=== PATIENT | female | born 1965 | race Caucasian/White ===

== ENCOUNTER 2017-01-19 11:59 | Emergency (ER) | payer OTHER ==
[~2017-01-19] VITALS: Ht 157.5 cm; Wt 91.5 kg
[2017-01-19 12:02] VITALS: Ht 157.5 cm; Wt 91.5 kg
--- NOTE | 2017-01-19 12:55 | ERD ---
ER Documentation Chief Complaint Date/Time DATE: 01/19/17 TIME: 12:52 Chief Complaint on menses, large bleeding today HPI This is a 51-year-old female who presents to the emergency department today complaining of a large amount of vaginal bleeding that started this morning. Patient states she is currently on her menstrual cycle and is 3 days into her cycle. States that this is abnormal for her. States that she gets her menstrual cycle every month and has not missed any recently. States she had some mild abdominal pain. Denies any history of fibroids. Denies any dizziness , weakness. Denies any dysuria. ROS All systems reviewed and are negative except as per history of present illness. Medications Home Meds Active Scripts Docusate Sodium* (Colace*) 100 Mg Capsule, 100 MG PO TID, #30 CAP Prov:JENS KINGSLEY PA-C 01/19/17 Ferrous Sulfate* (Ferrous Sulfate*) 325 Mg Tabec, 325 MG PO BID, #60 TAB Prov:JENS KINGSLEY PA-C 01/19/17 Acetaminophen* (Tylophen*) 500 Mg Capsule, 1 CAP PO Q6H Y for PAIN AND OR ELEVATED TEMP, #30 CAP Prov:JENS KINGSLEY PA-C 01/19/17 Ibuprofen* (Motrin*) 600 Mg Tab, 600 MG PO Q6, #30 TAB Prov:JENS KINGSLEY PA-C 01/19/17 Physical Exam Vitals Vital Signs Date Time Temp Pulse Resp B/P Pulse Ox O2 Delivery O2 Flow Rate FiO2 01/19/17 12:02 98.1 89 18 140/89 99 Physical Exam Const: No acute distress Head: Atraumatic Eyes: Normal Conjunctiva ENT: Normal External Ears, Nose and Mouth. Neck: Full range of motion..~ No meningismus. Resp: Clear to auscultation bilaterally Cardio: Regular rate and rhythm, no murmurs Abd: Soft, mild suprapubic tenderness non distended. Normal bowel sounds. No right lower quadrant pain. No left lower quadrant pain. Skin: No petechiae or rashes Neur: Awake and alert Psych: Normal Mood and Affect Result Diagram: 01/19/17 1335 01/19/17 1335 Results 24 hrs Laboratory Tests Test 01/19/17 13:35 01/19/17 13:48 White Blood Count 5.510^3/ul Red Blood Count 4.4110^6/ul Hemoglobin 8.6g/dl Hematocrit 30.6% Mean Corpuscular Volume 69.4fl Mean Corpuscular Hemoglobin 19.5pg Mean Corpuscular Hemoglobin Concent 28.1g/dl Red Cell Distribution Width 17.7% Platelet Count 85734^3/UL Mean Platelet Volume 8.8fl Neutrophils % 55.3% Lymphocytes % 32.5% Monocytes % 6.9% Eosinophils % 4.4% Basophils % 0.5% Nucleated Red Blood Cells % 0.0/100WBC Neutrophils # 3.010^3/ul Lymphocytes # 1.810^3/ul Monocytes # 0.410^3/ul Eosinophils # 0.210^3/ul Basophils # 0.010^3/ul Nucleated Red Blood Cells # 0.010^3/ul Sodium Level 140mmol/L Potassium Level 3.6mmol/L Chloride Level 104mmol/L Carbon Dioxide Level 27mmol/L Anion Gap 13 Blood Urea Nitrogen 10mg/dl Creatinine 0.49mg/dl Glucose Level 94mg/dl Calcium Level 8.8mg/dl Total Bilirubin 0.1mg/dl Direct Bilirubin 0.00mg/dl Indirect Bilirubin 0.1mg/dl Aspartate Amino Transf (AST/SGOT) 23IU/L Alanine Aminotransferase (ALT/SGPT) 30IU/L Alkaline Phosphatase 98IU/L Total Protein 9.3g/dl Albumin 4.1g/dl Globulin 5.20g/dl Albumin/Globulin Ratio 0.78 Bedside Urine pH (LAB) 5.5 Bedside Urine Protein (LAB) 2+ Bedside Urine Glucose (UA) Negative Bedside Urine Ketones (LAB) Negative Bedside Urine Blood 3+ Bedside Urine Nitrite (LAB) Negative Bedside Urine Leukocyte Esterase (L Negative DIAGNOSTIC IMAGING REPORT Patient: RAUL TRIPP : 1965 Age: 51 Sex: F [id number] DOS: 01/19/17 0000 Ordering MD: JENS KINGSLEY PA-C Location: [facility] Room/Bed: PROCEDURE: US Pelvis. CLINICAL INDICATION: Vaginal bleeding. TECHNIQUE: Multiple sonographic images of the pelvis were obtained utilizing a transabdominal and endovaginal technique. The images were reviewed on a PACS workstation. COMPARISON: No. FINDINGS: The uterus is visualized there is slightly inhomogeneous measuring 11.3 cm sagittal by 7.1 cm AP by 7 cm transverse. There is a mass arising from or abutting the left fundus of the uterus measuring approximately 6.7 x 5 cm AP suspicious for a pedunculated leiomyoma. It has both peripheral and internal blood flow. A left adnexal mass could present this fashion. The endometrial echo complex is not evaluated. The right ovary was not visualized. The left ovary measures 4.3 x 3.6 x 4.3 cm. There is a 4 x 3.4 x 3.9 cm cyst with internal low level echoes in the left ovary with some peripheral and some possible internal blood flow noted.. There is a small Nabothian cyst or endometrial cyst in the lower uterine segment. IMPRESSION: 1. An MRI of the uterus and ovaries is recommended with intravenous Gadavist for further evaluation of a left pelvic mass which may be the result of a pedunculated leiomyoma extending into the left adnexal area. 2. 4 x 3.4 x 3.9 cm left ovarian mass which can be further characterized on the MRI pelvis. An endometrioma, atypical hemorrhagic cyst or other ovarian mass might present this fashion. 3. No evidence of free fluid in the pelvis. RPTAT:AAJJ Physician Suresh Date Time Electronically viewed and signed by Physician Suresh on 01/19/2017 14:37 GIL/ CC: JENS KINGSLEY PA-C Procedures/[facility] This a 51-year-old female who presents to the emergency department today complaining of heavy vaginal bleeding that started this morning. Patient indicated she is currently on her menstrual cycle. Did indicate that she has not had a Pap smear for the past 2 years however at that time it was "normal". Given the patient's age and complaints of heavy vaginal bleeding I did obtain laboratory work as well as a non-OB ultrasound Laboratory work shows no elevated white blood cell count. Her hemoglobin is 8.6 and hematocrit is 30.6. Platelets are mildly elevated electrolytes are within normal limits. Liver functions within normal limits. UA negative for infection Urine test is negative Ultrasound shows a that there is a mass arising from the left fundus of the uterus measuring approximately 6.7 x 5 cm suspicious for pedunculated leiomyoma. Has both peripheral and internal blood flow. There is a left adnexal mass could also present in this fashion. There is a 4 x 3.4 x 3.9 cm cyst with internal low level echoes in the left ovary with some possible internal blood flow as well. 4 x 3.4 x 3.9 cm left ovarian mass which can further be characterized by MRI and pelvis. Endometrioma, atypical hemorrhagic cyst or other ovarian mass may present in this fashion. May also be the result of a pedunculated leiomyoma extending into the left adnexal area there is no evidence of free fluid in the pelvis. There is also a small nabothian cyst or endometrial cyst in the lower uterine segment All results were explained to the patient. Symptoms at this time most consistent with pelvic pain, anemia and pelvic mass. Patient will be given a prescription for iron, colace, tylenol, and motrin At this time the patient is stable for discharge and outpatient management. Patient should follow up with their PCP in the next 1-2 days. She was also given a list of [employer] resources. They may return to the emergency department sooner for any persistent or worsening of symptoms. Patient understood and agreed with the plan. Discussed the patient with Dr. Aceves and he is in agreement with the plan. Departure Diagnosis: Primary Impression: Vaginal bleeding Additional Impression: Pelvic pain Condition: JENS Alves PA-C Jan 19, 2017 12:55
[2017-01-19 13:41] LABS: ADD SCAN DIFF NO
[2017-01-19 13:43] LABS: ABNORMAL IP MESSAGE 1; BASOPHILS % 0.5 % (0.0-2.0); EOSINOPHILS # 0.2 10^3/ul (0.0-0.5); EOSINOPHILS % 4.4 % (0.0-7.0); HEMATOCRIT 30.6 % (37.0-47.0); HEMOGLOBIN 8.6 g/dl (12.0-16.0); LYMPHOCYTES # 1.8 10^3/ul (0.8-2.9); LYMPHOCYTES % 32.5 % (15.0-51.0); MEAN CORPUSCULAR HEMOGLOBIN 19.5 pg (29.0-33.0); MEAN CORPUSCULAR HGB CONC 28.1 g/dl (32.0-37.0); MEAN CORPUSCULAR VOLUME 69.4 fl (82.0-101.0); MEAN PLATELET VOLUME 8.8 fl (7.4-10.4); MONOCYTE # 0.4 10^3/ul (0.3-0.9); MONOCYTES % 6.9 % (0.0-11.0); NEUTROPHILS % 55.3 % (39.0-77.0); PLATELET COUNT 478 10^3/UL (140-415); RED BLOOD COUNT 4.41 10^6/ul (4.20-5.40); RED CELL DISTRIBUTION WIDTH 17.7 % (11.5-14.5); WHITE BLOOD COUNT 5.5 10^3/ul (4.8-10.8)
[2017-01-19 13:49] LABS: URINE BLOOD (Dip) POC 3+ (NEGATIVE)
[2017-01-19 13:51] LABS: ALBUMIN 4.1 g/dl (3.3-4.9)
[2017-01-19 13:52] LABS: POTASSIUM 3.6 mmol/L (3.5-5.1)
[2017-01-19 13:54] LABS: ALBUMIN/GLOBULIN RATIO 0.78; BILIRUBIN,INDIRECT 0.1 mg/dl (0-1.1); BILIRUBIN,TOTAL 0.1 mg/dl (0.2-1.3); CREATININE 0.49 mg/dl (0.44-1.00); TOTAL PROTEIN 9.3 g/dl (6.1-8.1)
[2017-01-19 13:55] LABS: CALCIUM 8.8 mg/dl (8.4-10.2)
--- NOTE | 2017-01-19 14:37 | RADRPT ---
PROCEDURE: US Pelvis. CLINICAL INDICATION: Vaginal bleeding. TECHNIQUE: Multiple sonographic images of the pelvis were obtained utilizing a transabdominal and endovaginal technique. The images were reviewed on a PACS workstation. COMPARISON: No. FINDINGS: The uterus is visualized there is slightly inhomogeneous measuring 11.3 cm sagittal by 7.1 cm AP by 7 cm transverse. There is a mass arising from or abutting the left fundus of the uterus measuring ap proximately 6.7 x 5 cm AP suspicious for a pedunculated leiomyoma. It has both peripheral and inter nal blood flow. A left adnexal mass could present this fashion. The endometrial echo complex is not evaluated. The right ovary was not visualized. The left ovary measures 4.3 x 3.6 x 4.3 cm. There is a 4 x 3.4 x 3.9 cm cyst with internal low level echoes in the left ovary with some peripheral and some possib le internal blood flow noted.. There is a small Nabothian cyst or endometrial cyst in the lower seminole rine segment. IMPRESSION: 1. An MRI of the uterus and ovaries is recommended with intravenous Gadavist for further evaluation of a left pelvic mass which may be the result of a pedunculated leiomyoma extending into the left a dnexal area. 2. 4 x 3.4 x 3.9 cm left ovarian mass which can be further characterized on the MRI pelvis. An endo metrioma, atypical hemorrhagic cyst or other ovarian mass might present this fashion. 3. No evidence of free fluid in the pelvis. RPTAT:AAJJ Physician Suresh Date Time Electronically viewed and signed by Physician Suresh on 01/19/2017 14:37 GIL/
[2017-01-19] MEDS ORDERED: IBUP-1542 PO (14:57)
[2017-01-19] MEDS ORDERED: ACET500C5 PO (14:57)
[2017-01-19] MEDS ORDERED: FER325 PO (14:58)
[2017-01-19] MEDS ORDERED: DOCU-144 PO (14:58)
[2017-01-19 15:19] VITALS: BP 179/101; PULSE 79; RESP 20; TEMP 98.3
== END 2017-01-19 15:21 | disposition home or self-care (01) ==
LOC: FTE 11:59
DX: N93.9 Abnormal uterine and vaginal bleeding, unspecified (principal); R10.2 Pelvic and perineal pain
CPT/HCPCS: 76830; 76856; 80053; 81003; 85025